=== PATIENT | female | born 1995 | race Caucasian/White ===

== ENCOUNTER 2017-12-18 15:00 | Emergency (ER) | payer MEDICAID ==
[~2017-12-18] VITALS: Ht 165.1 cm; Wt 51.0 kg
[~2017-12-18 15:00] MED LIST: ONDA4TAB59 PO
[2017-12-18 15:07] VITALS: BP 116/58
== END 2017-12-18 15:42 | disposition home or self-care (01) ==
LOC: ER 15:01
DX: K08.89 Other specified disorders of teeth and supporting structures (principal); R11.0 Nausea; R10.9 Unspecified abdominal pain; Z88.8 Allergy status to other drugs, medicaments and biological substances
CPT/HCPCS: 99281

== ENCOUNTER 2019-08-29 10:59 | Emergency (ER) | payer MEDICAID ==
[~2019-08-29] VITALS: Ht 170.2 cm; Wt 54.5 kg
[~2019-08-29 10:59] MED LIST changes: +CLOT15CR73 TOP
[2019-08-29 11:47] LABS: CLARITY,URINE CLOUDY (Clear); COLOR,URINE BROWN (Yellow); GLUCOSE, URINE NEGATIVE (Neg); KETONES,URINE NEGATIVE (Neg); LEUKOCYTE ESTERASE ,URINE TRACE (Neg); NITRITES, URINE NEGATIVE (Neg); OCCULT BLOOD,URINE LARGE (Neg); PH,URINE 5.5 (4.8-8.0); PROTEIN,URINE 100 mg/dl (Neg); URINE HCG NEGATIVE (NEG); UROBILINOGEN,URINE 0.2 E.U/dL (0.2-1.0)
[2019-08-29 11:48] LABS: UA COLLECTION TYPE CLN CATCH MIDSTREAM
[2019-08-29 11:54] LABS: BACTERIA,URINE 1+ /HPF (Neg); MUCUS STRANDS NONE SEEN /LPF (Neg); RBC,URINE TNTC /HPF (0-2); SQUAMOUS EPITHELIAL CELL,UR MANY /LPF (FEW)
--- NOTE | 2019-08-29 11:54 | NUR ---
UA REJECTED FOR CULTURE
[2019-08-29 11:56] LABS: BASOPHILS % (AUTO) 0.5 % (0-1); EOSINOPHILS # (AUTO) 0.2 X10'3 (0-0.9); EOSINOPHILS % (AUTO) 3.9 % (0-6); HEMATOCRIT 45.7 % (35.0-45.0); HEMOGLOBIN 15.6 g/dl (12.0-16.0); LYMPHOCYTES # (AUTO) 1.2 X10'3 (1.1-4.8); LYMPHOCYTES % (AUTO) 24.1 % (21-51); MEAN CORPUSCULAR HEMOGLOBIN 30.6 PG (27.0-31.0); MEAN CORPUSCULAR HGB CONC 34.1 g/dL (33.0-36.5); MEAN CORPUSCULAR VOLUME 89.9 FL (78-98); MEAN PLATELET VOLUME 9.8 FL (7.4-10.4); MONOCYTES # (AUTO) 0.4 X10'3 (0-0.9); MONOCYTES % (AUTO) 8.5 % (2-12); NEUTROPHILS # (AUTO) 3.2 X10'3 (1.8-7.7); PLATELET COUNT 186 X10'3 (140-440); RED BLOOD COUNT 5.09 X10'6 (4.20-5.60); RED CELL DISTRIBUTION WIDTH 14.2 % (11.5-14.5); WHITE BLOOD COUNT 5.1 X10'3 (4.5-11.0)
[2019-08-29 12:13] LABS: ALANINE AMINOTRANSFERASE 13 U/L (12-78); ALBUMIN 4.3 G/DL (3.4-5.0); ALBUMIN/GLOBULIN RATIO 1.3 (1.1-1.5); ALKALINE PHOSPHATASE 71 IU/L (46-116); ANION GAP 11 (8-16); ASPARTATE AMINO TRANSFERASE 10 U/L (10-37); BILIRUBIN,TOTAL 0.8 MG/DL (0.1-1.0); BLOOD UREA NITROGEN 12 MG/DL (7-18); BUN/CREATININE RATIO 16.7 (6.6-38.0); CALCIUM 8.9 MG/DL (8.5-10.1); CHLORIDE 107 MMOL/L (99-107); CREATININE 0.72 MG/DL (0.40-0.90); GLUCOSE 93 MG/DL (70-104); LIPASE 78 U/L (73-393); POTASSIUM 3.7 MMOL/L (3.5-5.1); SODIUM 142 MMOL/L (135-145); TOTAL CARBON DIOXIDE 24.2 MMOL/L (24-32); TOTAL PROTEIN 7.7 G/DL (6.4-8.2); eGFR > 90 ML/MIN
[2019-08-29 13:19] VITALS: BP 103/58
[2019-08-29] MEDS ORDERED: normal saline 1000ml 1,000 ML IV ONE (13:25)
== END 2019-08-29 13:30 | disposition home or self-care (01) ==
LOC: ER 11:00
DX: K52.9 Noninfective gastroenteritis and colitis, unspecified (principal); A05.9 Bacterial foodborne intoxication, unspecified; F17.200 Nicotine dependence, unspecified, uncomplicated; Z88.8 Allergy status to other drugs, medicaments and biological substances; Z79.899 Other long term (current) drug therapy
CPT/HCPCS: 36415; 80053; 81001; 81025; 83690; 85025; 99283

== ENCOUNTER 2020-02-06 17:15 | Emergency (ER) | payer MEDICAID ==
[~2020-02-06] VITALS: Ht 172.7 cm; Wt 45.8 kg
[2020-02-06 17:49] LABS: BASOPHILS % (AUTO) 0.7 % (0-1); EOSINOPHILS # (AUTO) 0.2 X10'3 (0-0.9); EOSINOPHILS % (AUTO) 2.7 % (0-6); HEMATOCRIT 47.9 % (35.0-45.0); HEMOGLOBIN 16.3 g/dl (12.0-16.0); LYMPHOCYTES # (AUTO) 1.8 X10'3 (1.1-4.8); LYMPHOCYTES % (AUTO) 28.5 % (21-51); MEAN CORPUSCULAR HEMOGLOBIN 31.1 PG (27.0-31.0); MEAN CORPUSCULAR HGB CONC 34.1 g/dL (33.0-36.5); MEAN CORPUSCULAR VOLUME 91.3 FL (78-98); MEAN PLATELET VOLUME 9.6 FL (7.4-10.4); MONOCYTES # (AUTO) 0.5 X10'3 (0-0.9); MONOCYTES % (AUTO) 8.8 % (2-12); NEUTROPHILS # (AUTO) 3.7 X10'3 (1.8-7.7); NEUTROPHILS % (AUTO) 59.3 % (42-75); PLATELET COUNT 185 X10'3 (140-440); RED BLOOD COUNT 5.25 X10'6 (4.20-5.60); RED CELL DISTRIBUTION WIDTH 12.7 % (11.5-14.5); WHITE BLOOD COUNT 6.2 X10'3 (4.5-11.0)
[2020-02-06 17:52] LABS: URINE HCG NEGATIVE (NEG)
[2020-02-06 17:53] LABS: CLARITY,URINE CLOUDY (Clear); COLOR,URINE YELLOW (Yellow); GLUCOSE, URINE NEGATIVE (Neg); KETONES,URINE NEGATIVE (Neg); LEUKOCYTE ESTERASE ,URINE NEGATIVE (Neg); NITRITES, URINE NEGATIVE (Neg); OCCULT BLOOD,URINE TRACE-INTACT (Neg); PH,URINE 5.5 (4.8-8.0); PROTEIN,URINE 100 mg/dl (Neg); UROBILINOGEN,URINE 0.2 E.U/dL (0.2-1.0)
[2020-02-06 17:55] LABS: UA COLLECTION TYPE CLN CATCH MIDSTREAM
[2020-02-06 18:02] LABS: ALANINE AMINOTRANSFERASE 14 U/L (12-78); ALBUMIN 4.6 G/DL (3.4-5.0); ALBUMIN/GLOBULIN RATIO 1.5 (1.1-1.5); ALKALINE PHOSPHATASE 65 IU/L (46-116); AMYLASE 42 U/L (25-115); ANION GAP 10 (8-16); ASPARTATE AMINO TRANSFERASE 14 U/L (10-37); BILIRUBIN,TOTAL 1.4 MG/DL (0.1-1.0); BLOOD UREA NITROGEN 13 MG/DL (7-18); BUN/CREATININE RATIO 16.3 (6.6-38.0); CHLORIDE 106 MMOL/L (99-107); GLUCOSE 87 MG/DL (70-104); LIPASE 134 U/L (73-393); POTASSIUM 3.6 MMOL/L (3.5-5.1); SODIUM 142 MMOL/L (135-145); TOTAL CARBON DIOXIDE 25.9 MMOL/L (24-32); TOTAL PROTEIN 7.6 G/DL (6.4-8.2); eGFR 88 ML/MIN
[2020-02-06 18:05] LABS: BACTERIA,URINE 1+ /HPF (Neg); MUCUS STRANDS MANY /LPF (Neg); RBC,URINE 0-2 /HPF (0-2); SQUAMOUS EPITHELIAL CELL,UR MANY /LPF (FEW)
[2020-02-06] MEDS ORDERED: ONDA4TAB6 PO (18:06)
[2020-02-06 18:07] VITALS: BP 115/59
[2020-02-06] MEDS ORDERED: ondansetron 4mg rapidly disintigrating tab PO ONE (18:10)
== END 2020-02-06 18:27 | disposition home or self-care (01) ==
LOC: ER 17:16
DX: R63.0 Anorexia (principal); R10.9 Unspecified abdominal pain; Z88.8 Allergy status to other drugs, medicaments and biological substances; Z79.2 Long term (current) use of antibiotics; Z79.899 Other long term (current) drug therapy
CPT/HCPCS: 36415; 80053; 81001; 81025; 82150; 83690; 85025; 99283

== ENCOUNTER 2021-03-05 16:34 | Inpatient (IN) | payer MEDICAID ==
[~2021-03-05] VITALS: Ht 172.7 cm; Wt 43.6 kg
[~2021-03-05 16:34] MED LIST changes: +ONDA4TAB6 PO
[2021-03-05] MEDS ORDERED: acetaminophen 325mg tablet PO ONE ×2 (17:30→17:35)
[2021-03-05] MEDS ORDERED: ketorolac tromethamine 15mg/ml inj. IM ONE (17:30)
[2021-03-05 19:42] LABS: URINE HCG NEGATIVE (NEG)
[2021-03-05] MEDS ORDERED: HYDROcodone/acetaminophen 5mg/325mg tablet PO PRN (21:55)
[2021-03-05] MEDS ORDERED: acetaminophen 325mg tablet PO PRN (21:55)
[2021-03-05] MEDS ORDERED: mag hydrox/Alum hydrox/simeth 30ml oral suspension PO PRN (21:55)
[2021-03-05] MEDS ORDERED: ondansetron/PF 4mg/2ml inj IV PRN (21:55)
[2021-03-05] MEDS ORDERED: magnesium hydroxide 30ml (MOM) UD suspension PO PRN (21:55)
[2021-03-05 22:10] LABS: BASOPHILS % (AUTO) 0.1 % (0-1); EOSINOPHILS % (AUTO) 0.2 % (0-6); HEMATOCRIT 42.3 % (35.0-45.0); HEMOGLOBIN 14.3 g/dl (12.0-16.0); LYMPHOCYTES # (AUTO) 1.1 X10'3 (1.1-4.8); LYMPHOCYTES % (AUTO) 9.5 % (21-51); MEAN CORPUSCULAR HEMOGLOBIN 31.1 PG (27.0-31.0); MEAN CORPUSCULAR HGB CONC 33.8 g/dL (33.0-36.5); MEAN CORPUSCULAR VOLUME 92.1 FL (78-98); MEAN PLATELET VOLUME 9.6 FL (7.4-10.4); MONOCYTES # (AUTO) 0.6 X10'3 (0-0.9); MONOCYTES % (AUTO) 5.6 % (2-12); NEUTROPHILS # (AUTO) 9.5 X10'3 (1.8-7.7); NEUTROPHILS % (AUTO) 84.6 % (42-75); PLATELET COUNT 183 X10'3 (140-440); RED BLOOD COUNT 4.59 X10'6 (4.20-5.60); RED CELL DISTRIBUTION WIDTH 12.8 % (11.5-14.5); WHITE BLOOD COUNT 11.3 X10'3 (4.5-11.0)
[2021-03-05 22:18] LABS: ALANINE AMINOTRANSFERASE 14 U/L (12-78); ALBUMIN 3.9 G/DL (3.4-5.0); ALBUMIN/GLOBULIN RATIO 1.4 (1.1-1.5); ALKALINE PHOSPHATASE 57 IU/L (46-116); ANION GAP 11 (8-16); ASPARTATE AMINO TRANSFERASE 15 U/L (10-37); BILIRUBIN,TOTAL 0.8 MG/DL (0.1-1.0); BLOOD UREA NITROGEN 8 MG/DL (7-18); BUN/CREATININE RATIO 13.3 (6.6-38.0); CALCIUM 8.5 MG/DL (8.5-10.1); CHLORIDE 107 MMOL/L (99-107); GLUCOSE 90 MG/DL (70-104); POTASSIUM 3.7 MMOL/L (3.5-5.1); SODIUM 142 MMOL/L (135-145); TOTAL CARBON DIOXIDE 23.6 MMOL/L (24-32); TOTAL PROTEIN 6.7 G/DL (6.4-8.2); eGFR > 90 ML/MIN
--- NOTE | 2021-03-05 23:57 | NUR ---
Patient in room [facility]. I have received report from SHARIF Krishnan and had the opportunity to ask questions and assume patient care.
[2021-03-06 00:17] VITALS: BP 106/52
--- NOTE | 2021-03-06 06:05 | NUR ---
Patient in room [facility]. I have received report from SHARIF Hale and had the opportunity to ask questions and assume patient care.
--- NOTE | 2021-03-06 06:26 | NUR ---
Problems reprioritized. Patient report given, questions answered & plan of care reviewed with SHARIF Madrigal.
[2021-03-06 07:45] VITALS: BP 97/58
[2021-03-06] MEDS: acetaminophen 325mg tablet PO PRN ×2 (09:07→23:27)
[2021-03-06] MEDS ORDERED: magnesium 4gm in 100ml NS 100 ML IV PRN (10:20)
[2021-03-06] MEDS ORDERED: magnesium Cl slow-release 64mg tablet PO PRN (10:20)
[2021-03-06] MEDS ORDERED: potassium Cl 40MEQ/1/2NS 520ml 520 ML IV PRN (10:20)
[2021-03-06] MEDS ORDERED: potassium Cl 20 mEq SR tablet PO PRN (10:20)
[2021-03-06 11:00] VITALS: BP 104/50
--- NOTE | 2021-03-06 16:56 | NUR ---
Malnutrition consult: Pt reports 14-23 lb wt loss with decreased appetite per malnutrition risk screen with RN. Pt seen at bedside reports UBW 120 lbs (last weighed a year ago) though recently weighed 110 lbs a couple months ago, and now down to 96 lbs. Pt states she didn't realize she had lost weight until she weighed herself a few days ago. Per report, pt with severe wt loss of 20% in a year, most recently with 12.7% wt loss. Pt states appetite has just been low since admit. Recall of PO intake [employer] [place] fluctuates. Pt states she gets nausea with PO intake and was taking anti-emetic with meals and not eating well, then states she usually eats a pretty high amount of food, eating almost an entire cake herself. Pt with no documented decrease in muscle strength or edema. Pt appears very thin with visible muscle wasting at clavicles and arms. Pt meets criteria for severe malnutrition. Pt provided with ONS coupons and alternative menu to provide additional food options. Patient's food preferences were d/w dietary, see below. Pt states she has tried Ensure and would like to receive it during admit, d/w RN. Pt very emotional when discussing changes in weight and expresses desire to gain weight. RD provided pt with verbal nutrition therapy education on weight gain, will return again to provide written materials. Pt denies any changes in bowel movements. Family member at bedside inquired about thyroid check stating that thyroid issues run in the family, d/w RN. Patient reports she had an a year ago which is when she started experiencing wt loss and states she continues to have issues with menstruation though hasn't f/u with an OBGYN. All information obtained was discussed with patient's RN. Pt provided with RD contact information and encouraged to reach out if needed. Pt denies food allergies or difficulty chewing/swallowing. Will continue to follow closely. Recommendations: 1) Continue regular diet 2) [place] food preferences: Fresh fruit and applesauce TID, Chocolate Ensure Enlive TID, [place]/peach smoothie BIDLD, no fish 3) Bowel care per rx 4) Scaled weight this admit; routine scaled weights thereafter Addendum: 03/06/21 at [address] Amended: Links added.
--- NOTE | 2021-03-06 18:05 | NUR ---
Problems reprioritized. Patient report given, questions answered & plan of care reviewed with SHARIF Hale.
--- NOTE | 2021-03-06 18:10 | NUR ---
Patient in room [facility]. I have received report from SHARIF Madrigal and had the opportunity to ask questions and assume patient care.
[2021-03-06] MEDS: lactose-reduced food (Ensure Enlive) - 237ml bottle PO SCH (18:36)
[2021-03-06 19:00] VITALS: BP 97/55
[2021-03-06] MEDS: K and/or MAG REPLACEMENT MC SCH (20:00)
[2021-03-06 23:48] VITALS: BP 106/50
--- NOTE | 2021-03-07 06:12 | NUR ---
Problems reprioritized. Patient report given, questions answered & plan of care reviewed with SHARIF Alexander.
[2021-03-07 06:44] LABS: BASOPHILS % (AUTO) 0.5 % (0-1); EOSINOPHILS # (AUTO) 0.1 X10'3 (0-0.9); EOSINOPHILS % (AUTO) 2.4 % (0-6); HEMATOCRIT 40.8 % (35.0-45.0); HEMOGLOBIN 14.1 g/dl (12.0-16.0); LYMPHOCYTES # (AUTO) 2.1 X10'3 (1.1-4.8); LYMPHOCYTES % (AUTO) 34.6 % (21-51); MEAN CORPUSCULAR HEMOGLOBIN 31.8 PG (27.0-31.0); MEAN CORPUSCULAR HGB CONC 34.6 g/dL (33.0-36.5); MONOCYTES # (AUTO) 0.6 X10'3 (0-0.9); MONOCYTES % (AUTO) 10.3 % (2-12); NEUTROPHILS # (AUTO) 3.2 X10'3 (1.8-7.7); NEUTROPHILS % (AUTO) 52.2 % (42-75); PLATELET COUNT 175 X10'3 (140-440); RED BLOOD COUNT 4.44 X10'6 (4.20-5.60); RED CELL DISTRIBUTION WIDTH 12.7 % (11.5-14.5); WHITE BLOOD COUNT 6.1 X10'3 (4.5-11.0)
--- NOTE | 2021-03-07 06:52 | NUR ---
Patient in room [facility]. I have received report from Alexia Gomes RN and had the opportunity to ask questions and assume patient care.
[2021-03-07 06:55] LABS: ALANINE AMINOTRANSFERASE 16 U/L (12-78); ALBUMIN 3.7 G/DL (3.4-5.0); ALBUMIN/GLOBULIN RATIO 1.4 (1.1-1.5); ALKALINE PHOSPHATASE 50 IU/L (46-116); ANION GAP 9 (8-16); ASPARTATE AMINO TRANSFERASE 11 U/L (10-37); BILIRUBIN,TOTAL 1.2 MG/DL (0.1-1.0); BLOOD UREA NITROGEN 12 MG/DL (7-18); BUN/CREATININE RATIO 18.2 (6.6-38.0); CALCIUM 8.7 MG/DL (8.5-10.1); CHLORIDE 106 MMOL/L (99-107); CREATININE 0.66 MG/DL (0.40-0.90); GLUCOSE 85 MG/DL (70-104); MAGNESIUM 2.1 MG/DL (1.5-2.4); PHOSPHORUS 3.8 MG/DL (2.3-4.5); POTASSIUM 3.3 MMOL/L (3.5-5.1); SODIUM 140 MMOL/L (135-145); TOTAL CARBON DIOXIDE 25.1 MMOL/L (24-32); TOTAL PROTEIN 6.4 G/DL (6.4-8.2); eGFR > 90 ML/MIN
[2021-03-07] MEDS: lactose-reduced food (Ensure Enlive) - 237ml bottle PO SCH ×3 (08:00→18:00)
[2021-03-07] MEDS: K and/or MAG REPLACEMENT MC SCH ×2 (08:00→20:00)
[2021-03-07] MEDS: potassium Cl 20 mEq SR tablet PO PRN ×3 (09:51→17:55)
[2021-03-07 11:00] VITALS: BP 101/62
[2021-03-07] MEDS: pantoprazole 40mg Tablet.DR PO SCH (13:55)
--- NOTE | 2021-03-07 15:14 | NUR ---
PAGER ID: [phone] MESSAGE: Danish VillaA, pt has anxiety, was wondering if an order for Ativan would be appropriate for her? Benjamin [id number]
[2021-03-07 18:00] VITALS: BP 95/63
--- NOTE | 2021-03-07 18:35 | NUR ---
Patient in room [facility]. I have received report from SHARIF Alexander and had the opportunity to ask questions and assume patient care.
--- NOTE | 2021-03-07 18:36 | NUR ---
Patient in room [facility]. I have received report from SHARIF Alexander and had the opportunity to ask questions and assume patient care.
[2021-03-07 19:00] VITALS: BP 95/63
[2021-03-08] VITALS: BP 98/65
[2021-03-08 05:56] LABS: ALANINE AMINOTRANSFERASE 15 U/L (12-78); ALBUMIN/GLOBULIN RATIO 1.3 (1.1-1.5); ALKALINE PHOSPHATASE 52 IU/L (46-116); ANION GAP 10 (8-16); ASPARTATE AMINO TRANSFERASE 11 U/L (10-37); BILIRUBIN,TOTAL 1.1 MG/DL (0.1-1.0); BLOOD UREA NITROGEN 12 MG/DL (7-18); BUN/CREATININE RATIO 17.9 (6.6-38.0); CALCIUM 9.2 MG/DL (8.5-10.1); CHLORIDE 104 MMOL/L (99-107); CREATININE 0.67 MG/DL (0.40-0.90); GLUCOSE 86 MG/DL (70-104); MAGNESIUM 2.1 MG/DL (1.5-2.4); PHOSPHORUS 4.2 MG/DL (2.3-4.5); POTASSIUM 3.7 MMOL/L (3.5-5.1); SODIUM 138 MMOL/L (135-145); TOTAL CARBON DIOXIDE 23.7 MMOL/L (24-32); eGFR > 90 ML/MIN
[2021-03-08 05:59] LABS: BASOPHILS % (AUTO) 0.4 % (0-1); EOSINOPHILS # (AUTO) 0.2 X10'3 (0-0.9); EOSINOPHILS % (AUTO) 2.3 % (0-6); HEMATOCRIT 43.7 % (35.0-45.0); LYMPHOCYTES # (AUTO) 2.3 X10'3 (1.1-4.8); LYMPHOCYTES % (AUTO) 32.7 % (21-51); MEAN CORPUSCULAR HEMOGLOBIN 31.3 PG (27.0-31.0); MEAN CORPUSCULAR HGB CONC 34.3 g/dL (33.0-36.5); MEAN CORPUSCULAR VOLUME 91.3 FL (78-98); MEAN PLATELET VOLUME 9.8 FL (7.4-10.4); MONOCYTES # (AUTO) 0.7 X10'3 (0-0.9); MONOCYTES % (AUTO) 10.4 % (2-12); NEUTROPHILS # (AUTO) 3.8 X10'3 (1.8-7.7); NEUTROPHILS % (AUTO) 54.2 % (42-75); PLATELET COUNT 174 X10'3 (140-440); RED BLOOD COUNT 4.78 X10'6 (4.20-5.60); WHITE BLOOD COUNT 7.1 X10'3 (4.5-11.0)
--- NOTE | 2021-03-08 06:09 | NUR ---
MD notified of IV infiltrated and pt refusal for placement of new IV. No change in orders
--- NOTE | 2021-03-08 06:35 | NUR ---
Problems reprioritized. Patient report given, questions answered & plan of care reviewed with SHARIF Burnett.
--- NOTE | 2021-03-08 06:40 | NUR ---
Patient in room [facility]. I have received report from SHARIF Hale and had the opportunity to ask questions and assume patient care.
[2021-03-08 07:20] VITALS: BP 103/53
[2021-03-08] MEDS ORDERED: ondansetron 4mg rapidly disintigrating tab PO PRN (07:20)
[2021-03-08] MEDS: K and/or MAG REPLACEMENT MC SCH (07:42)
[2021-03-08] MEDS: lactose-reduced food (Ensure Enlive) - 237ml bottle PO SCH ×2 (08:00→13:07)
[2021-03-08] MEDS: pantoprazole 40mg Tablet.DR PO SCH (09:01)
[2021-03-08 11:27] VITALS: BP 113/70
--- NOTE | 2021-03-08 12:34 | NUR ---
PAGER ID: [phone] MESSAGE: [id number] Re: [id number] ok for patient to be discharged
--- NOTE | 2021-03-08 15:05 | NUR ---
DC inst provided to pt. No IV. All belongings sent w/pt. Pt ambulated to vehicle.
== END 2021-03-08 15:10 | disposition home or self-care (01) | DRG 143 ==
LOC: ER 16:35 → ED HOLD 21:54 → SUR 3N 23:01
PROVIDERS: ADMIT Internal Medicine; ATTEND Family Medicine
DX: J93.11 Primary spontaneous pneumothorax (principal); F17.210 Nicotine dependence, cigarettes, uncomplicated; K21.9 Gastro-esophageal reflux disease without esophagitis
CPT/HCPCS: 36415; 71045; 71250; 80053; 81025; 83735; 84100; 85025; 85610; 87081; 93005; 96372; 99285; G0378; J1885; J2405

== ENCOUNTER 2022-02-26 20:50 | Emergency (ER) | payer MEDICAID ==
[~2022-02-26] VITALS: Ht 172.7 cm; Wt 59.1 kg
[2022-02-26 23:24] LABS: BASOPHILS % (AUTO) 0.5 % (0-1); EOSINOPHILS % (AUTO) 0.2 % (0-6); HEMATOCRIT 42.4 % (35.0-45.0); HEMOGLOBIN 14.3 g/dl (12.0-16.0); LYMPHOCYTES # (AUTO) 0.9 X10'3 (1.1-4.8); LYMPHOCYTES % (AUTO) 13.7 % (21-51); MEAN CORPUSCULAR HEMOGLOBIN 29.6 PG (27.0-31.0); MEAN CORPUSCULAR HGB CONC 33.7 g/dL (33.0-36.5); MEAN CORPUSCULAR VOLUME 87.9 FL (78-98); MEAN PLATELET VOLUME 10.2 FL (7.4-10.4); MONOCYTES # (AUTO) 0.5 X10'3 (0-0.9); MONOCYTES % (AUTO) 8.1 % (2-12); NEUTROPHILS # (AUTO) 5.1 X10'3 (1.8-7.7); NEUTROPHILS % (AUTO) 77.5 % (42-75); PLATELET COUNT 196 X10'3 (140-440); RED BLOOD COUNT 4.82 X10'6 (4.20-5.60); RED CELL DISTRIBUTION WIDTH 13.5 % (11.5-14.5); WHITE BLOOD COUNT 6.5 X10'3 (4.5-11.0)
[2022-02-26 23:41] LABS: ALANINE AMINOTRANSFERASE 16 U/L (12-78); ALBUMIN 4.9 G/DL (3.4-5.0); ALBUMIN/GLOBULIN RATIO 1.7 (1.1-1.5); ALKALINE PHOSPHATASE 55 IU/L (46-116); ANION GAP 11 (8-16); ASPARTATE AMINO TRANSFERASE 18 U/L (10-37); BLOOD UREA NITROGEN 8 MG/DL (7-18); BUN/CREATININE RATIO 12.5 (6.6-38.0); CALCIUM 9.3 MG/DL (8.5-10.1); CHLORIDE 103 MMOL/L (99-107); CREATININE 0.64 MG/DL (0.40-0.90); GLUCOSE 88 MG/DL (70-104); POTASSIUM 3.6 MMOL/L (3.5-5.1); SODIUM 139 MMOL/L (135-145); TOTAL CARBON DIOXIDE 25.4 MMOL/L (24-32); TOTAL PROTEIN 7.8 G/DL (6.4-8.2); eGFR > 90 ML/MIN
[2022-02-26 23:45] LABS: APTT 28 SECONDS (22-32)
[2022-02-27 01:51] LABS: URINE HCG NEGATIVE (NEG)
--- NOTE | 2022-02-27 03:30 | NUR ---
Pt pink, alert, no acute/resp distress. Bed in lowest position, wheels locked, rail 2/2 up, call sun in reach. Will continue to monitor for acute changes and needs. Will continue to monitor for acute changes and needs. PIV c/d/i s complication or adverse.
--- NOTE | 2022-02-27 05:08 | NUR ---
Pt pink, alert, no acute/resp distress. Bed in lowest position, wheels locked, rail 2/2 up, call sun in reach.
--- NOTE | 2022-02-27 06:07 | NUR ---
Handoff report to dayshift RN
[2022-02-27] MEDS ORDERED: proCHLORperazine 10 MG/2 ml inj IV ONE (06:50)
[2022-02-27] MEDS ORDERED: normal saline 1000ML IV soln IVB ONE (06:50)
[2022-02-27] MEDS ORDERED: ketorolac trometh. 30mg/ml inj. IV ONE (06:50)
--- NOTE | 2022-02-27 06:50 | NUR ---
tele neuro on going.
[2022-02-27] MEDS ORDERED: predniSONE 20 mg tablet PO ONE (07:45)
--- NOTE | 2022-02-27 10:59 | NUR ---
returned from MRI
[2022-02-27] MEDS ORDERED: PRED20TA PO (11:16)
[2022-02-27 11:34] VITALS: BP 102/57
== END 2022-02-27 11:37 | disposition home or self-care (01) ==
LOC: ER 20:51
DX: G51.0 Bell's palsy (principal); R51.9 Headache, unspecified; R20.0 Anesthesia of skin; R53.83 Other fatigue; R53.1 Weakness; Z87.440 Personal history of urinary (tract) infections; Z88.8 Allergy status to other drugs, medicaments and biological substances; Z79.899 Other long term (current) drug therapy
CPT/HCPCS: 36415; 70450; 70551; 71045; 80053; 81025; 85025; 85610; 85730; 93005; 96361; 96374; 99285; J0780; J7030; J7512

== ENCOUNTER 2022-03-02 11:15 | Emergency (ER) | payer MEDICAID ==
[~2022-03-02] VITALS: Ht 172.7 cm; Wt 54.5 kg
[~2022-03-02 11:15] MED LIST changes: -CLOT15CR73 TOP; -ONDA4TAB59 PO; -ONDA4TAB6 PO; +PRED20TA PO
[2022-03-02] MEDS ORDERED: valacyclovir 500mg tablet PO STA (12:32)
[2022-03-02] MEDS ORDERED: cloNIDine 0.1 mg tablet PO ONE (12:35)
[2022-03-02 14:38] VITALS: BP 124/75
[2022-03-02] MEDS ORDERED: VALA100031 PO (14:58)
== END 2022-03-02 15:20 | disposition home or self-care (01) ==
LOC: ER 11:18
DX: G51.0 Bell's palsy (principal); R07.89 Other chest pain; R51.9 Headache, unspecified; R20.0 Anesthesia of skin; F41.9 Anxiety disorder, unspecified; Z87.440 Personal history of urinary (tract) infections; Z88.8 Allergy status to other drugs, medicaments and biological substances; Z79.2 Long term (current) use of antibiotics; Z79.899 Other long term (current) drug therapy
CPT/HCPCS: 71045; 99283

== ENCOUNTER 2023-05-09 09:11 | Emergency (ER) | payer MEDICAID ==
[~2023-05-09] VITALS: Ht 172.7 cm; Wt 70.0 kg
[~2023-05-09 09:11] MED LIST changes: -PRED20TA PO; +VALA100031 PO
[2023-05-09 09:20] VITALS: BP 107/64
[2023-05-09] MEDS ORDERED: AMOX-117 PO (11:27)
== END 2023-05-09 11:49 | disposition home or self-care (01) ==
LOC: ER 09:11
DX: J32.9 Chronic sinusitis, unspecified (principal); R11.0 Nausea; Z88.8 Allergy status to other drugs, medicaments and biological substances; Z79.1 Long term (current) use of non-steroidal anti-inflammatories (NSAID)
CPT/HCPCS: 99283

== ENCOUNTER 2023-12-14 11:23 | Emergency (ER) | payer MEDICAID ==
[~2023-12-14] VITALS: Ht 172.7 cm; Wt 74.7 kg
[2023-12-14 11:44] VITALS: BP 123/86; PULSE 76; RESP 18; O2SAT 97
[2023-12-14] MEDS ORDERED: OMEP40CA21 PO (11:46)
[2023-12-14 11:59] VITALS: TEMP 97.8
== END 2023-12-14 12:01 | disposition home or self-care (01) ==
LOC: ER 11:24
DX: K29.00 Acute gastritis without bleeding (principal); Z88.8 Allergy status to other drugs, medicaments and biological substances; Z79.899 Other long term (current) drug therapy; Z87.448 Personal history of other diseases of urinary system
CPT/HCPCS: 99283

== ENCOUNTER 2024-03-11 19:47 | Emergency (ER) | payer MEDICAID ==
[~2024-03-11] VITALS: Ht 172.7 cm; Wt 72.7 kg
[2024-03-11 19:56] VITALS: TEMP 97.9
[2024-03-11 20:12] LABS: BASOPHILS % (AUTO) 0.4 % (0-1); EOSINOPHILS # (AUTO) 0.1 X10'3 (0-0.9); EOSINOPHILS % (AUTO) 0.9 % (0-6); HEMATOCRIT 41.4 % (35.0-45.0); HEMOGLOBIN 14.4 g/dl (12.0-16.0); LYMPHOCYTES % (AUTO) 15.3 % (21-51); MEAN CORPUSCULAR HEMOGLOBIN 30.6 PG (27.0-31.0); MEAN CORPUSCULAR HGB CONC 34.7 g/dL (33.0-36.5); MEAN CORPUSCULAR VOLUME 88.1 FL (78-98); MONOCYTES # (AUTO) 0.5 X10'3 (0-0.9); MONOCYTES % (AUTO) 7.8 % (2-12); NEUTROPHILS # (AUTO) 4.9 X10'3 (1.8-7.7); NEUTROPHILS % (AUTO) 75.6 % (42-75); PLATELET COUNT 221 X10'3 (140-440); RED BLOOD COUNT 4.69 X10'6 (4.20-5.60); RED CELL DISTRIBUTION WIDTH 13.1 % (11.5-14.5); WHITE BLOOD COUNT 6.5 X10'3 (4.5-11.0)
[2024-03-11 20:34] LABS: HCG SERUM QL NEGATIVE
[2024-03-11 20:37] LABS: APTT 28 SECONDS (22-32); PROTHROMBIN TIME 10.9 SECONDS (9.0-12.0)
[2024-03-11 20:40] LABS: ALBUMIN 4.4 G/DL (3.4-5.0); ANION GAP 13 (8-16); BLOOD UREA NITROGEN 9 MG/DL (7-18); BUN/CREATININE RATIO 14.5 (10.0-20.0); CALCIUM 9.2 MG/DL (8.5-10.1); CHLORIDE 103 MMOL/L (99-107); CREATININE 0.62 MG/DL (0.40-0.90); GLUCOSE 103 MG/DL (70-104); POTASSIUM 3.3 MMOL/L (3.5-5.1); PRO BRAIN NATRIURETIC PEPTIDE < 30 PG/ML (0-125); SODIUM 138 MMOL/L (135-145); TOTAL CARBON DIOXIDE 22.3 MMOL/L (24-32); eCRCL 135 ML/MIN; eGFR > 90 ML/MIN
[2024-03-11 21:15] LABS: ALANINE AMINOTRANSFERASE 16 U/L (12-78); ALBUMIN/GLOBULIN RATIO 1.3 (1.1-1.5); ALKALINE PHOSPHATASE 64 IU/L (46-116); ASPARTATE AMINO TRANSFERASE 12 U/L (10-37); BILIRUBIN,DIRECT 0.2 MG/DL (0-0.3); BILIRUBIN,TOTAL 1.5 MG/DL (0.1-1.0); MAGNESIUM 1.9 MG/DL (1.5-2.4); THYROID STIMULATING HORMONE 1.39 ulU/ml (0.34-4.50); TOTAL PROTEIN 7.7 G/DL (6.4-8.2)
[2024-03-11 21:27] LABS: D-DIMER 0.25 MG/L FEU (0-0.50)
[2024-03-11] MEDS: dexamethasone sod phosphate 10mg/ml inj PO STA (23:23)
[2024-03-11] MEDS: ipratropium/albuterol 3ml nebule NEB STA (23:41)
[2024-03-11 23:43] VITALS: PULSE 61; RESP 18; O2SAT 98
[2024-03-11 23:47] VITALS: PULSE 75; RESP 18; O2SAT 98
[2024-03-11 23:57] VITALS: BP 116/82; PULSE 75; RESP 18; O2SAT 98
== END 2024-03-11 23:58 | disposition home or self-care (01) ==
LOC: ER 19:48
DX: R06.02 Shortness of breath (principal); R00.1 Bradycardia, unspecified; Z88.8 Allergy status to other drugs, medicaments and biological substances
CPT/HCPCS: 36415; 71045; 71250; 80048; 80076; 83735; 83880; 84443; 84484; 84703; 85025; 85379; 85610; 85730; 94640; 99284; J1100

== ENCOUNTER 2024-03-20 19:45 | Emergency (ER) | payer MEDICAID ==
[~2024-03-20] VITALS: Ht 172.7 cm; Wt 72.0 kg
[2024-03-20 20:46] LABS: ALANINE AMINOTRANSFERASE 19 U/L (12-78); ALBUMIN 4.1 G/DL (3.4-5.0); ALBUMIN/GLOBULIN RATIO 1.2 (1.1-1.5); ALKALINE PHOSPHATASE 64 IU/L (46-116); ANION GAP 10 (8-16); ASPARTATE AMINO TRANSFERASE 15 U/L (10-37); BILIRUBIN,TOTAL 1.1 MG/DL (0.1-1.0); BLOOD UREA NITROGEN 8 MG/DL (7-18); BUN/CREATININE RATIO 12.1 (10.0-20.0); CHLORIDE 102 MMOL/L (99-107); CREATININE 0.66 MG/DL (0.40-0.90); GLUCOSE 102 MG/DL (70-104); LIPASE 30 U/L (16-77); POTASSIUM 3.4 MMOL/L (3.5-5.1); SODIUM 137 MMOL/L (135-145); TOTAL CARBON DIOXIDE 24.7 MMOL/L (24-32); TOTAL PROTEIN 7.4 G/DL (6.4-8.2); eCRCL 127 ML/MIN; eGFR > 90 ML/MIN
[2024-03-20 20:54] LABS: BASOPHILS # (AUTO) 0.1 X10'3 (0-0.2); BASOPHILS % (AUTO) 0.8 % (0-1); EOSINOPHILS # (AUTO) 0.1 X10'3 (0-0.9); EOSINOPHILS % (AUTO) 1.8 % (0-6); HEMATOCRIT 43.1 % (35.0-45.0); HEMOGLOBIN 14.8 g/dl (12.0-16.0); LYMPHOCYTES # (AUTO) 1.2 X10'3 (1.1-4.8); LYMPHOCYTES % (AUTO) 17.9 % (21-51); MEAN CORPUSCULAR HEMOGLOBIN 30.2 PG (27.0-31.0); MEAN CORPUSCULAR HGB CONC 34.3 g/dL (33.0-36.5); MEAN PLATELET VOLUME 10.1 FL (7.4-10.4); MONOCYTES # (AUTO) 0.7 X10'3 (0-0.9); MONOCYTES % (AUTO) 10.5 % (2-12); NEUTROPHILS # (AUTO) 4.8 X10'3 (1.8-7.7); PLATELET COUNT 249 X10'3 (140-440); RED CELL DISTRIBUTION WIDTH 13.5 % (11.5-14.5); WHITE BLOOD COUNT 6.9 X10'3 (4.5-11.0)
[2024-03-20 22:18] VITALS: TEMP 98
[2024-03-20] MEDS: potassium Cl 20 mEq SR tablet PO STA (22:41)
[2024-03-20 23:06] LABS: FREE T4 (FREE THYROXINE) 1.15 NG/DL (0.73-1.40); THYROID STIMULATING HORMONE 1.72 ulU/ml (0.34-4.50)
[2024-03-20 23:17] LABS: URINE HCG NEGATIVE (NEG)
[2024-03-20 23:20] LABS: BILIRUBIN,URINE SMALL (Neg); CLARITY,URINE CLOUDY (Clear); COLOR,URINE YELLOW (Yellow); GLUCOSE, URINE NEGATIVE (Neg); KETONES,URINE 40 mg/dl (Neg); LEUKOCYTE ESTERASE ,URINE NEGATIVE (Neg); NITRITES, URINE NEGATIVE (Neg); OCCULT BLOOD,URINE NEGATIVE (Neg); PROTEIN,URINE NEGATIVE (Neg); UROBILINOGEN,URINE 0.2 E.U/dL (0.2-1.0)
[2024-03-20 23:21] LABS: UA COLLECTION TYPE CLN CATCH MIDSTREAM
[2024-03-20 23:31] LABS: BACTERIA,URINE FEW /HPF (Neg); MUCUS STRANDS FEW /LPF (Neg); RBC,URINE 0-2 /HPF (0-2); SQUAMOUS EPITHELIAL CELL,UR FEW /LPF (FEW)
[2024-03-21 00:43] VITALS: BP 113/73; PULSE 69; RESP 16; O2SAT 98
== END 2024-03-21 00:47 | disposition home or self-care (01) ==
LOC: ER 19:45
DX: R55 Syncope and collapse (principal); E86.0 Dehydration; Z88.8 Allergy status to other drugs, medicaments and biological substances; Z79.899 Other long term (current) drug therapy
CPT/HCPCS: 36415; 80053; 81001; 81025; 83690; 84439; 84443; 85025; 87088; 93005; 99284

== ENCOUNTER 2024-05-22 15:08 | Emergency (ER) | payer MEDICAID ==
[~2024-05-22] VITALS: Ht 172.7 cm; Wt 70.5 kg
[2024-05-22 15:12] VITALS: BP 111/76; PULSE 96; RESP 18; TEMP 97.8; O2SAT 96
[2024-05-22 15:29] LABS: BASOPHILS % (AUTO) 0.5 % (0-1); EOSINOPHILS # (AUTO) 0.1 X10'3 (0-0.9); EOSINOPHILS % (AUTO) 2.2 % (0-6); HEMATOCRIT 42.1 % (35.0-45.0); HEMOGLOBIN 14.5 g/dl (12.0-16.0); LYMPHOCYTES # (AUTO) 1.3 X10'3 (1.1-4.8); LYMPHOCYTES % (AUTO) 21.8 % (21-51); MEAN CORPUSCULAR HEMOGLOBIN 30.5 PG (27.0-31.0); MEAN CORPUSCULAR HGB CONC 34.4 g/dL (33.0-36.5); MEAN CORPUSCULAR VOLUME 88.7 FL (78-98); MEAN PLATELET VOLUME 9.5 FL (7.4-10.4); MONOCYTES # (AUTO) 0.5 X10'3 (0-0.9); MONOCYTES % (AUTO) 8.4 % (2-12); NEUTROPHILS # (AUTO) 4.1 X10'3 (1.8-7.7); NEUTROPHILS % (AUTO) 67.1 % (42-75); PLATELET COUNT 243 X10'3 (140-440); RED BLOOD COUNT 4.75 X10'6 (4.20-5.60); WHITE BLOOD COUNT 6.2 X10'3 (4.5-11.0)
[2024-05-22 15:47] LABS: ANION GAP 9 (8-16); BLOOD UREA NITROGEN 11 MG/DL (7-18); BUN/CREATININE RATIO 16.9 (10.0-20.0); CALCIUM 8.7 MG/DL (8.5-10.1); CHLORIDE 104 MMOL/L (99-107); CREATININE 0.65 MG/DL (0.40-0.90); GLUCOSE 102 MG/DL (70-104); POTASSIUM 3.7 MMOL/L (3.5-5.1); SODIUM 137 MMOL/L (135-145); eCRCL 129 ML/MIN; eGFR > 90 ML/MIN
== END 2024-05-22 17:23 | disposition left against medical advice (07) ==
LOC: ER 15:09
DX: R55 Syncope and collapse (principal); R06.02 Shortness of breath; R53.83 Other fatigue; F41.9 Anxiety disorder, unspecified; Z53.21 Procedure and treatment not carried out due to patient leaving prior to being seen by health care provider
CPT/HCPCS: 36415; 80048; 85025; 93005

== ENCOUNTER 2025-06-24 18:51 | Emergency (ER) | payer MEDICAID ==
[~2025-06-24] VITALS: Ht 172.7 cm; Wt 68.2 kg
[2025-06-24 19:40] LABS: MEAN PLATELET VOLUME 9.5 FL (7.4-10.4); RED CELL DISTRIBUTION WIDTH 13.1 % (11.5-14.5)
[2025-06-24 19:56] LABS: CREATININE 0.72 MG/DL (0.40-0.90); TOTAL CARBON DIOXIDE 22.1 MMOL/L (24-32); eGFR > 90 ML/MIN
[2025-06-24] MEDS ORDERED: ondansetron 4mg rapidly disintigrating tab PO ONE (20:30)
--- NOTE | 2025-06-24 20:42 | Physician Documentation ---
History of Present Illness ~ Chief Complaint: Vomiting Stated Complaint: VOMITING/WEAKNESS Time Seen by MD: 19:54 Primary Medical Doctor: SHIRLEY MYERS IN [facility] This is a 30-year-old previously healthy female who presents with approximately 3 hours of nausea and vomiting without diarrhea, patient reports no other acute symptoms or concerns including no fever or cough. Patient reports no bloody emesis. Patient reports onset of epigastric abdominal pain following bouts of emesis. Patient does report heavy cannabis use. Medication Reconciliation Allergies: Coded Allergies: diphenhydramine HCl (Unverified Allergy, Unknown, 03/11/24) Scheduled Valacyclovir HCl (Valacyclovir), 1 TAB PO Q8H Past Medical History Past Medical History: UTI Past Surgical History: noncontributory Alcohol Use: None Lives In: Home Occupation: employed Review of Systems ROS As stated above in the HPI, otherwise all systems are reviewed and negative. Physical Exam Vital Signs: Temperature: 97.6, Source: Oral, Heart Rate: 91, Respiratory Rate: 16, BP: 124/88, Pulse Oximetry: 99 Oxygen Flow Rate: 0 Physical Exam VITALS: Reviewed and as above. GENERAL: Alert, nontoxic appearing, no apparent distress. RESPIRATORY: No increased work of breathing, no respiratory distress, speaking in full clear sentences CV: Regular rate and rhythm no murmur BACK: No CVA tenderness GI: Soft, nondistended, minimal tenderness to epigastric region otherwise abdomen nontender, no rebound, no guarding, bowel sounds present MUSCULOSKELETAL: Progress Results/Orders Results/Orders Completed Orders - EDGAR CAI Ondansetron Disint. Tablet (Zofran Odt T (06/24/25 20:30) Ondansetron Inj. (Zofran 4mg/2ml Vial) (06/24/25 20:40) Normal Saline 1000ml (0.9% Sodium Chlori (06/24/25 20:40) Olanzapine Im (Zyprexa I.M. Im On (06/24/25 21:35) Olanzapine Im (Zyprexa I.M. Im On (06/24/25 22:40) Normal Saline 1000ml (0.9% Sodium Chlori (06/24/25 22:40) Vital Signs 06/24/25 06/24/25 06/24/2525 18:53 20:00 20:00 22:23 Temp 97.6 Pulse 91 80 78 Resp 16 16 16 18 B/P (MAP) 124/88 118/77 (91) 124/80 (95) Pulse Ox 99 99 99 O2 Flow Rate 0 06/24/25 06/25/25 06/25/25 23:21 00:30 00:47 Temp 98.1 Pulse 60 70 Resp 16 14 16 B/P (MAP) 121/88 (99) 132/83 (99) 124/80 Pulse Ox 99 99 99 Laboratory Tests Test 06/24/25 19:32 06/24/25 20:52 White Blood Count 8.7 Red Blood Count 5.17 Hemoglobin 15.5 Hematocrit 44.8 Mean Corpuscular Volume 86.7 Mean Corpuscular Hemoglobin 30.0 Mean Corpuscular Hemoglobin Concent 34.7 Red Cell Distribution Width 13.1 Platelet Count 222 Mean Platelet Volume 9.5 Neutrophils (%) (Auto) 87.0 H Lymphocytes (%) (Auto) 7.0 L Monocytes (%) (Auto) 5.5 Eosinophils (%) (Auto) 0.3 Basophils (%) (Auto) 0.2 Neutrophils # (Auto) 7.6 Lymphocytes # (Auto) 0.6 L Monocytes # (Auto) 0.5 Eosinophils # (Auto) 0.0 Basophils # (Auto) 0.0 CBC Comment Sodium Level 138 Potassium Level 3.8 Chloride Level 103 Carbon Dioxide Level 22.1 L Anion Gap 13 Blood Urea Nitrogen 11 Creatinine 0.72 Estimated GFR/1.73 m2 > 90 BUN/Creatinine Ratio 15.3 Glucose Level 122 H Calcium Level 9.5 Total Bilirubin 1.8 H Aspartate Amino Transf (AST/SGOT) 17 Alanine Aminotransferase (ALT/SGPT) 14 Alkaline Phosphatase 65 Total Protein 7.8 Albumin 4.8 Globulin 3.0 Albumin/Globulin Ratio 1.6 H Lipase 18 Chemistry Comments Urine Specimen Description Cln catch midstream Urine Color Lizzette Urine Clarity Slightly cloudy Urine pH 7.0 Urine Specific [place] 1.020 Urine Protein 30 H Urine Glucose (UA) Negative Urine Ketones >=80 Urine Occult Blood Negative Urine Nitrite Negative Urine Bilirubin Moderate Urine Urobilinogen 1.0 Urine Leukocyte Esterase Negative Urine RBC 0-2 Urine WBC 0-4 Urine Squamous Epithelial Cells Many Urine Bacteria Few Urine Mucus Many Urine Culture Indicated Not ind Volume Urine Centrifuged 10 ml Urine HCG, Qualitative Negative Urine Comment Medical Decision Making Findings This 30-year-old female presented with several hours of vomiting and nausea without other associated symptoms including no significant abdominal pain, no fever, no diarrhea, and no fever. Lab work did not demonstrate significant electrolyte or metabolic derangement and did not demonstrate evidence of inf ection. Physical exam was benign including no significant abdominal pain, small amount of abdominal pain reported in epigastric region likely by vomiting, patient reports improvement in symptoms after medication and is appropriate for outpatient follow up. Follow up instructions, return to care precautions, and home care instructions provided and patient verbalized understanding. Diff Dx Pain:Considerations: Include: Appendicitis, Bowel obstruction, Gastritis/PUD Diff Dx N/V/D:Considerations: Include: Dehydration, DKA, Diarrhea - bacterial, Diarrhea - parasitic, Diarrhea - viral, Drug toxicity, Electrolyte imbalance, Food poisoning, Gastroenteritis, GE reflux, Hypovolemia, Hypotension, Inflammatory BD, Pancreatitis, , Urolithiasis, UTI Departure Disposition: HOME / SELF CARE / HOMELESS Impression: Primary Impression: Vomiting Qualified Codes: R11.2 - Nausea with vomiting, unspecified Condition: Improved Discharge Instructions: Nausea and Vomiting, Adult Additional Instructions: Please stay well hydrated, begin eating slowly as tolerated. Your symptoms may be related to or worsened by heavy cannabis use, I recommend decreasing or stopping cannabis use as this may improve your nausea symptoms. Please follow up with your primary care provider in the next few days. Please return to the emergency department for any new or worsening concerning symptoms. Referrals: NO PRIMARY CARE PROVIDER (PCP) Education Educated: Patient Educated regarding: diagnosis, treatment, prognosis, need for follow up Signature Scribe Signature: No scribe Attestation: The note accurately reflects work and decisions made by me.LARA Cerda 06/25/25 00:03 EDGAR CAI Jun 24, 2025 20:42
[2025-06-24] MEDS: normal saline 1000ML IV soln IVB ONE ×2 (20:58→23:20)
[2025-06-24] MEDS: ondansetron/PF 4mg/2ml inj IV ONE (20:58)
[2025-06-24 21:03] LABS: URINE HCG NEGATIVE (NEG)
[2025-06-24 21:04] LABS: LEUKOCYTE ESTERASE ,URINE NEGATIVE (Neg); NITRITES, URINE NEGATIVE (Neg); OCCULT BLOOD,URINE NEGATIVE (Neg)
[2025-06-24 21:05] LABS: UA COLLECTION TYPE CLN CATCH MIDSTREAM
[2025-06-24 21:11] LABS: MUCUS STRANDS MANY /LPF (Neg); SQUAMOUS EPITHELIAL CELL,UR MANY /LPF (FEW)
[2025-06-24] MEDS: OLANZapine **IM** 10 mg inj. IM ONE ×2 (22:09→23:25)
[2025-06-25 00:47] VITALS: BP 124/80; PULSE 70; RESP 16; TEMP 98.1; O2SAT 99
== END 2025-06-25 00:55 | disposition home or self-care (01) ==
LOC: ER 18:51
DX: R11.2 Nausea with vomiting, unspecified (principal); F12.90 Cannabis use, unspecified, uncomplicated
CPT/HCPCS: 36415; 80053; 81001; 81025; 83690; 85025; 96361; 96372; 96374; 99285; J2405; J3490; J7030